=== PATIENT | male | born 1960 | race Caucasian/White ===

== ENCOUNTER 2018-07-04 21:59 | Emergency (ER) | payer MEDICARE, OTHER | END 2018-07-05 01:36 | disposition home or self-care (01) | LOC: E/R 21:59 | DX: J18.9 Pneumonia, unspecified organism (principal); R40.2142 Coma scale, eyes open, spontaneous, at arrival to emergency department; R40.2362 Coma scale, best motor response, obeys commands, at arrival to emergency department; R40.2252 Coma scale, best verbal response, oriented, at arrival to emergency department; E03.9 Hypothyroidism, unspecified | CPT/HCPCS: 71045; 99283-25 ==